=== PATIENT | male | born 1985 ===

== ENCOUNTER → 2019-08-31 | Outpatient (CLI) | payer OTHER ==
[2019-08-31 23:04] LABS: BASO % 1 % (0-3); EOS # 0.1 x10^3/uL (0.0-0.7); EOS % 2 % (0-3); HEMATOCRIT 31.2 % (39.0-53.0); LYMPH # 1.1 x10^3/uL (1.0-4.8); LYMPH % 28 % (24-48); MEAN CORPUSCULAR HEMOGLOBIN 22 pg (25-35); MEAN CORPUSCULAR HGB CONC 30 g/dL (31-37); MEAN CORPUSCULAR VOLUME 75 fL (79-100); MONO # 0.4 x10^3/uL (0.0-1.1); MONO % 12 % (0-9); NEUT # 2.1 x10^3uL (1.8-7.7); NEUT % 57 % (31-73); PLATELET COUNT 165 x10^3/uL (140-400); RED BLOOD COUNT 4.14 x10^6/uL (4.30-5.70); RED CELL DISTRIBUTION WIDTH 21.9 % (11.5-14.5); WHITE BLOOD COUNT 3.7 x10^3/uL (4.0-11.0)
[2019-08-31 23:48] LABS: HEMOGLOBIN 9.2 g/dL (13.0-17.5)
== END | disposition home or self-care (01) ==
LOC: SPEC 22:28 → EEVIPCON 22:28
PROVIDERS: ATTEND Family Medicine
DX: D64.9 Anemia, unspecified (principal)
CPT/HCPCS: 36415; 85025

== ENCOUNTER → 2019-09-01 | Outpatient (CLI) | payer OTHER ==
[2019-09-01 23:57] LABS: ANISOCYTOSIS SLIGHT; HYPOCHROMIA SLIGHT; MICROCYTOSIS SLIGHT; PLT ESTIMATE ADEQUATE (ADEQUATE)
[2019-09-02] LABS: BASO # 0.1 x10^3/uL (0.0-0.2); BASO % 1 % (0-3); EOS # 0.1 x10^3/uL (0.0-0.7); EOS % 2 % (0-3); HEMOGLOBIN 9.3 g/dL (13.0-17.5); LYMPH # 2.3 x10^3/uL (1.0-4.8); LYMPH % 40 % (24-48); MEAN CORPUSCULAR HEMOGLOBIN 22 pg (25-35); MEAN CORPUSCULAR HGB CONC 30 g/dL (31-37); MEAN CORPUSCULAR VOLUME 75 fL (79-100); MONO # 0.5 x10^3/uL (0.0-1.1); MONO % 8 % (0-9); NEUT # 2.7 x10^3uL (1.8-7.7); NEUT % 48 % (31-73); PLATELET COUNT 221 x10^3/uL (140-400); RED BLOOD COUNT 4.15 x10^6/uL (4.30-5.70); RED CELL DISTRIBUTION WIDTH 22.6 % (11.5-14.5); WHITE BLOOD COUNT 5.6 x10^3/uL (4.0-11.0)
== END ==
LOC: SPEC 23:28
PROVIDERS: ATTEND Family Medicine
DX: D64.9 Anemia, unspecified (principal)
CPT/HCPCS: 36415; 85025

== ENCOUNTER → 2019-09-03 | Outpatient (CLI) | payer OTHER ==
[2019-09-03 17:20] LABS: BASO % 1 % (0-3); EOS # 0.1 x10^3/uL (0.0-0.7); EOS % 2 % (0-3); HEMATOCRIT 24.1 % (39.0-53.0); HEMOGLOBIN 7.4 g/dL (13.0-17.5); LYMPH # 1.1 x10^3/uL (1.0-4.8); LYMPH % 29 % (24-48); MEAN CORPUSCULAR HEMOGLOBIN 23 pg (25-35); MEAN CORPUSCULAR HGB CONC 31 g/dL (31-37); MEAN CORPUSCULAR VOLUME 75 fL (79-100); MONO # 0.4 x10^3/uL (0.0-1.1); MONO % 10 % (0-9); NEUT # 2.3 x10^3uL (1.8-7.7); NEUT % 59 % (31-73); PLATELET COUNT 137 x10^3/uL (140-400); RED BLOOD COUNT 3.23 x10^6/uL (4.30-5.70); WHITE BLOOD COUNT 3.9 x10^3/uL (4.0-11.0)
[2019-09-03 18:35] LABS: ANISOCYTOSIS MOD; PLT ESTIMATE ADEQUATE (ADEQUATE)
[2019-09-03 18:36] LABS: MICROCYTOSIS SLIGHT; OVALOCYTES FEW
== END ==
LOC: SPEC 17:01
PROVIDERS: ATTEND Family Medicine
DX: D64.9 Anemia, unspecified (principal)
CPT/HCPCS: 36415; 85025

== ENCOUNTER → 2019-09-23 | Outpatient (CLI) | payer OTHER ==
[2019-09-24 02:38] LABS: BASO # 0.1 x10^3/uL (0.0-0.2); BASO % 1 % (0-3); EOS % 1 % (0-3); HEMATOCRIT 28.4 % (39.0-53.0); HEMOGLOBIN 8.7 g/dL (13.0-17.5); LYMPH # 1.1 x10^3/uL (1.0-4.8); LYMPH % 26 % (24-48); MEAN CORPUSCULAR HEMOGLOBIN 23 pg (25-35); MEAN CORPUSCULAR HGB CONC 31 g/dL (31-37); MEAN CORPUSCULAR VOLUME 76 fL (79-100); MONO # 0.4 x10^3/uL (0.0-1.1); MONO % 11 % (0-9); NEUT # 2.4 x10^3uL (1.8-7.7); NEUT % 60 % (31-73); PLATELET COUNT 223 x10^3/uL (140-400); RED BLOOD COUNT 3.72 x10^6/uL (4.30-5.70); RED CELL DISTRIBUTION WIDTH 21.5 % (11.5-14.5)
[2019-09-24 02:43] LABS: CALCIUM 8.4 mg/dL (8.5-10.1); GFR 84.5; POTASSIUM 4.1 mmol/L (3.5-5.1)
[2019-09-24 02:50] LABS: ALBUMIN 3.1 g/dL (3.4-5.0); ALBUMIN/GLOBULIN RATIO 0.9 (1.0-1.7); HYPOCHROMIA SLIGHT; MICROCYTOSIS SLIGHT; PLT ESTIMATE ADEQUATE (ADEQUATE); TOTAL BILIRUBIN 0.2 mg/dL (0.2-1.0); TOTAL PROTEIN 6.5 g/dL (6.4-8.2)
[2019-09-24 02:51] LABS: ANISOCYTOSIS MOD
== END ==
LOC: SPEC 22:30
PROVIDERS: ATTEND Family Medicine
DX: D64.9 Anemia, unspecified (principal)
CPT/HCPCS: 36415; 80053; 82977; 85025

== ENCOUNTER → 2019-09-28 | Outpatient (CLI) | payer OTHER ==
[2019-09-28 14:06] LABS: ALBUMIN 3.6 g/dL (3.4-5.0); CALCIUM 8.2 mg/dL (8.5-10.1); CREATININE 0.9 mg/dL (0.7-1.3); GFR 95.5; TOTAL BILIRUBIN 0.3 mg/dL (0.2-1.0); TOTAL PROTEIN 7.2 g/dL (6.4-8.2)
== END ==
LOC: EEVIPCON 13:38 → SPEC 13:38
PROVIDERS: ATTEND Family Medicine
DX: D64.9 Anemia, unspecified (principal)
CPT/HCPCS: 36415; 80053

== ENCOUNTER → 2019-10-21 | Outpatient (CLI) | payer OTHER ==
[2019-10-21 14:47] LABS: BASO % 1 % (0-3); EOS # 0.1 x10^3/uL (0.0-0.7); EOS % 1 % (0-3); HEMATOCRIT 26.6 % (39.0-53.0); LYMPH # 1.4 x10^3/uL (1.0-4.8); LYMPH % 32 % (24-48); MEAN CORPUSCULAR HEMOGLOBIN 21 pg (25-35); MEAN CORPUSCULAR HGB CONC 30 g/dL (31-37); MEAN CORPUSCULAR VOLUME 70 fL (79-100); MONO # 0.4 x10^3/uL (0.0-1.1); MONO % 9 % (0-9); NEUT # 2.5 x10^3uL (1.8-7.7); NEUT % 58 % (31-73); PLATELET COUNT 183 x10^3/uL (140-400); RED BLOOD COUNT 3.79 x10^6/uL (4.30-5.70); RED CELL DISTRIBUTION WIDTH 19.8 % (11.5-14.5); WHITE BLOOD COUNT 4.4 x10^3/uL (4.0-11.0)
[2019-10-21 16:46] LABS: ANISOCYTOSIS SLIGHT; HYPOCHROMIA MOD; MICROCYTOSIS SLIGHT; OVALOCYTES FEW; PLT ESTIMATE ADEQUATE (ADEQUATE)
== END | disposition home or self-care (01) ==
LOC: SPEC 14:24 → EEVIPCON 14:24
DX: D50.9 Iron deficiency anemia, unspecified (principal)
CPT/HCPCS: 36415; 85025

== ENCOUNTER → 2019-11-16 | Outpatient (CLI) | payer OTHER ==
[2019-11-16 09:15] LABS: BASO % 1 % (0-3); EOS # 0.1 x10^3/uL (0.0-0.7); EOS % 2 % (0-3); HEMATOCRIT 34.6 % (39.0-53.0); HEMOGLOBIN 10.5 g/dL (13.0-17.5); LYMPH # 1.5 x10^3/uL (1.0-4.8); LYMPH % 31 % (24-48); MEAN CORPUSCULAR HEMOGLOBIN 25 pg (25-35); MEAN CORPUSCULAR HGB CONC 30 g/dL (31-37); MEAN CORPUSCULAR VOLUME 82 fL (79-100); MONO # 0.4 x10^3/uL (0.0-1.1); MONO % 8 % (0-9); NEUT # 2.8 x10^3uL (1.8-7.7); NEUT % 58 % (31-73); PLATELET COUNT 261 x10^3/uL (140-400); RED BLOOD COUNT 4.24 x10^6/uL (4.30-5.70); RED CELL DISTRIBUTION WIDTH 23.4 % (11.5-14.5); WHITE BLOOD COUNT 4.8 x10^3/uL (4.0-11.0)
[2019-11-16 09:27] LABS: ALBUMIN 3.4 g/dL (3.4-5.0); CALCIUM 9.1 mg/dL (8.5-10.1); CREATININE 1.1 mg/dL (0.7-1.3); GFR 75.7; POTASSIUM 4.3 mmol/L (3.5-5.1); TOTAL BILIRUBIN 0.6 mg/dL (0.2-1.0); TOTAL PROTEIN 6.7 g/dL (6.4-8.2)
[2019-11-16 10:20] LABS: PLT ESTIMATE ADEQUATE (ADEQUATE)
[2019-11-16 10:22] LABS: OVALOCYTES FEW
[2019-11-16 10:23] LABS: BURR CELLS FEW; HYPOCHROMIA PRESENT
[2019-11-16 10:24] LABS: ANISOCYTOSIS SLIGHT
[2019-11-16 10:26] LABS: TEAR DROP CELLS OCC
== END | disposition home or self-care (01) ==
LOC: EEVIPCON 08:59 → SPEC 08:59
PROVIDERS: ATTEND Family Medicine
DX: D64.9 Anemia, unspecified (principal)
CPT/HCPCS: 36415; 80053; 85025